=== PATIENT | male | born 1975 | race Caucasian/White ===

== ENCOUNTER 2019-06-29 14:57 | Emergency (ER) | payer MEDICAID, OTHER ==
[2019-06-29 15:18] VITALS: BP 126/85
--- NOTE | 2019-06-29 15:34 | ED ---
Throat Pain/Nasal Congestion - HPI Summary HPI Summary: 43 yr old male with the complaint of dental pain. Pain to the left upper molars with drainage of pus from gum line yesterday. Onset of pain four days go. He states he has had some sweats. The patient states his pain is moderate. No other complaints. - History of Current Complaint Chief Complaint: UCDentalProblem Time Seen by Provider: 06/29/19 15:21 - Allergies/Home Medications Allergies/Adverse Reactions: Allergies Allergy/AdvReac Type Severity Reaction Status Date / Time shrimp Allergy Hives Verified 06/29/19 15:18 Home Medications: Home Medications Ibuprofen TAB* [Motrin TAB* 600 MG] 1,800 mg PO Q6H PRN 06/29/19 [History Confirmed 06/29/19] PMH/Surg Hx/FS Hx/Imm Hx - Surgical History Surgery Procedure, Year, and Place: L hand tendon repair Infectious Disease History: No Infectious Disease History: Denies: Traveled Outside the [place] in Last 30 Days - Family History Known Family History: Positive: None - Social History Alcohol Use: None Substance Use Type: Reports: Other Substance Use Comment - Amount & Last Used: bath salts IV Smoking Status (MU): Heavy Every Day Tobacco Smoker Type: Cigarettes Amount Used/How Often: 1 ppd Length of Time of Smoking/Using Tobacco: since age 13 Have You Smoked in the Last Year: Yes Review of Systems Constitutional: Negative Positive: Other - pain in the left upper molar teeth with gingival swelling. All Other Systems Reviewed And Are Negative: Yes Physical Exam Triage Information Reviewed: Yes Vital Signs On Initial Exam: Initial Vitals Temp Pulse Resp BP Pulse Ox 97.4 F 126 24 126/85 99 06/29/19 15:10 06/29/19 15:10 06/29/19 15:10 06/29/19 15:10 06/29/19 15:10 Vital Signs Reviewed: Yes Appearance: Positive: Well-Appearing, No Pain Distress Skin: Positive: Warm, Skin Color Reflects Adequate Perfusion Eyes: Positive: EOMI ENT: Positive: Other - There is pain on percussion of the upper molars left side. No active drainage. No facial swelling. Neck: Positive: Nontender Respiratory/Lung Sounds: Positive: Clear to Auscultation Cardiovascular: Positive: Pulses are Symmetrical in both Upper and Lower Extremities Abdomen Description: Negative: Distended Musculoskeletal: Positive: Strength/ROM Intact Neurological: Positive: Sensory/Motor Intact, Alert, Oriented to Person Place, Time, CN Intact II-III Psychiatric: Positive: Normal Diagnostics - Vital Signs Vital Signs Temp Pulse Resp BP Pulse Ox 06/29/19 15:10 97.4 F 126 24 126/85 99 - Laboratory Lab Statement: Any lab studies that have been ordered have been reviewed, and results considered in the medical decision making process. EENT Course/Dx - Course Course Of Treatment: 43 yr old with dental abscess. Rx with augmentin. - Diagnoses Provider Diagnoses: Dental abscess Discharge ED - Sign-Out/Discharge Documenting (check all that apply): Patient Departure All imaging exams completed and their final reports reviewed: No Studies - Discharge Plan Condition: Good Disposition: HOME Prescriptions: Amoxicillin/Clavulanate TAB* [Augmentin TAB 875*] 875 mg PO BID #20 tab Patient Education Materials: Dental Abscess (ED) Referrals: No Primary Care Phys,NOPCP [Primary Care Provider] - [facility] [Outside] - 2 Days Additional Instructions: A page of Dental Care Referrals in the area have been provided to you. Please call for an appointment. - Billing Disposition and Condition Condition: GOOD Disposition: Home
== END 2019-06-29 15:34 | disposition home or self-care (01) ==
LOC: UCCORT 14:57
DX: K04.7 Periapical abscess without sinus (principal); Z91.013 Allergy to seafood; F17.210 Nicotine dependence, cigarettes, uncomplicated
CPT/HCPCS: 99202; G0463